=== PATIENT | female | born 1995 ===

== ENCOUNTER → 2018-06-11 19:16 | Outpatient (REF) | payer OTHER, SELFPAY ==
[2018-06-11 20:13] LABS: Free T3, Triiodothyronine Free 3.61 pg/mL (2.77-5.27); Free T4, Direct Thyroxine 1.07 ng/dL (0.78-2.19)
[2018-06-11 20:27] LABS: Thyroid Stimulating Hormone 0.59 uIU/mL (0.47-4.68)
== END ==
LOC: LAB 19:16
PROVIDERS: Visit Provider Family Medicine
DX: E03.9 Hypothyroidism, unspecified (principal)
CPT/HCPCS: 84439; 84443; 84481